=== PATIENT | male | born 1995 | race Caucasian/White ===

== ENCOUNTER 2017-06-10 19:47 | Emergency (ER) | payer OTHER ==
[~2017-06-10] VITALS: Ht 167.6 cm; Wt 59.0 kg
[2017-06-10] MEDS ORDERED: [UNRECOGNIZED DRUG - OTHER] (20:31)
[2017-06-10] MEDS ORDERED: PNEU16DI2 (20:31)
== END 2017-06-11 00:35 | disposition home or self-care (01) ==
LOC: ER 19:47
DX: R51 Headache (principal)